=== PATIENT | male | born 1995 | race Caucasian/White ===

== ENCOUNTER 2016-10-29 22:29 | Emergency (ER) | payer OTHER ==
[~2016-10-29 22:29] MED LIST: COL100 PO; NOR5 PO; NORCO1 TA1 PO; PRILOSEC20 MG PO; TOPIRAMATE PO; ULTRAM50 MG PO
[2016-10-30 01:31] VITALS: BP 176/104
== END 2016-10-30 01:31 | disposition home or self-care (01) ==
LOC: ED 22:29
DX: R51 Headache (principal)
CPT/HCPCS: J1170

== ENCOUNTER 2016-12-20 19:01 | Emergency (ER) | payer OTHER ==
[2016-12-20 21:24] VITALS: BP 143/76
== END 2016-12-20 21:24 | disposition home or self-care (01) ==
LOC: ED 19:01
DX: S16.1XXA Strain of muscle, fascia and tendon at neck level, initial encounter (principal); G43.909 Migraine, unspecified, not intractable, without status migrainosus; I10 Essential (primary) hypertension; V49.9XXA Car occupant (driver) (passenger) injured in unspecified traffic accident, initial encounter; Y93.89 Activity, other specified; Y99.8 Other external cause status; Y92.89 Other specified places as the place of occurrence of the external cause
CPT/HCPCS: J1885